=== PATIENT | female | born 1980 | race Caucasian/White ===

== ENCOUNTER 2017-08-04 01:46 | Inpatient (IN) ==
[2017-08-03 09:25] LABS: MANUAL DIFF NEEDED? NO; URINE MICRO REVIEW NEEDED? NO; URINE SOURCE VOIDED
[2017-08-03 10:08] LABS: BILIRUBIN URINE NEGATIVE (NEGATIVE); BLOOD URINE NEGATIVE (NEGATIVE); COLOR YELLOW; GLUCOSE URINE NEGATIVE (NEGATIVE); LEUKOCYTES URINE NEGATIVE (NEGATIVE); NITRITE URINE NEGATIVE (NEGATIVE); PH URINE 5.5; PROTEIN URINE NEGATIVE (NEGATIVE); SP GRAVITY URINE 1.017; TURBIDITY URINE CLEAR (CLEAR); UR EPITHELIAL CELLS <10 /HPF (<10); URINE BACTERIA 2+ /HPF; URINE RBC <10 /HPF (<10); UROBILINOGEN URINE NORMAL (NORMAL)
[2017-08-03 10:22] LABS: BASO% 0.8 % (0.0-0.8); EOS# 0.18 X1000 (0.0-0.7); EOS% 3.5 % (0.0-10.0); HEMATOCRIT 37.9 % (37.0-47.0); HEMOGLOBIN 12.3 g/dL (12.0-16.0); LYMPH# 1.55 X1000 (1.2-3.4); LYMPH% 30.4 % (20.5-51.1); MCH 28.2 PG (27-31); MCHC 32.5 g/dL (33-37); MCV 86.9 FL (81-99); MONO# 0.33 X1000 (0.11-0.59); MONO% 6.5 % (1.7-9.3); NEUT% 58.8 % (42.2-75.2); PLT 340 X1000 (130-400); RBC 4.36 XMIL (4.2-5.4)
[2017-08-04] MEDS ORDERED: LR 1,000 ML IV SCH ×2 (06:23→14:13)
[2017-08-04] MEDS ORDERED: LR 1,000 ML ONE ×3 (06:32→11:28)
[2017-08-04] MEDS ORDERED: ALBUTEROL NEB INH ONE (06:41)
[2017-08-04] MEDS ORDERED: SODIUM CHLORIDE 0.9% INJ SCH (06:45)
[2017-08-04] MEDS ORDERED: PEPCID ONE (06:45)
[2017-08-04] MEDS ORDERED: PEPCID IV SCH (06:45)
[2017-08-04] MEDS ORDERED: SODIUM CHLORIDE 0.9% 10 ML ONE ×2 (06:46→10:02)
[2017-08-04] MEDS ORDERED: DIPRIVAN 1% ONE (07:28)
[2017-08-04] MEDS ORDERED: QUELICIN (DOSE) ONE (07:30)
[2017-08-04] MEDS ORDERED: ROBINUL ONE ×2 (07:30→10:20)
[2017-08-04] MEDS ORDERED: XYLOCAINE-MPF 2% ONE (07:30)
[2017-08-04] MEDS ORDERED: KEFZOL 2 GM/D5W 2 GM/50 ML IVPB ONE (09:13)
[2017-08-04] MEDS ORDERED: NORCURON ONE (10:02)
[2017-08-04] MEDS ORDERED: FENTANYL ONE (10:03)
[2017-08-04] MEDS ORDERED: DECADRON ONE (10:08)
[2017-08-04] MEDS ORDERED: ZOFRAN ONE (10:08)
[2017-08-04 10:15] LABS: URINE MICROSCOPIC NEEDED? NO; URINE SOURCE CATH
[2017-08-04 10:16] LABS: BILIRUBIN URINE NEGATIVE (NEGATIVE); BLOOD URINE NEGATIVE (NEGATIVE); CLARITY CLEAR (CLEAR); COLOR YELLOW; GLUCOSE URINE NEGATIVE (NEGATIVE); LEUKOCYTES URINE NEGATIVE (NEGATIVE); NITRITE URINE NEGATIVE (NEGATIVE); PROTEIN URINE NEGATIVE (NEGATIVE); SP GRAVITY URINE 1.025; UROBILINOGEN URINE NORMAL
[2017-08-04] MEDS ORDERED: NEOSTIGMINE ONE (10:20)
[2017-08-04] MEDS ORDERED: PHENERGAN IM PRN (11:06)
[2017-08-04] MEDS ORDERED: ESTRADERM 0.05 MG/24 HR PATCH TD ONE ×2 (11:06→14:15)
[2017-08-04] MEDS ORDERED: DEMEROL IM PRN (11:06)
[2017-08-04] MEDS ORDERED: ZOFRAN ODT PO PRN (11:06)
[2017-08-04] MEDS: DILAUDID ONE ×4 (11:27→11:55)
[2017-08-04] MEDS ORDERED: TORADOL ONE (11:27)
[2017-08-04] MEDS ORDERED: DILAUDID PCA VIAL ONE (11:27)
[2017-08-04] MEDS: PHENERGAN ONE ×2 (11:30→11:43)
[2017-08-04] MEDS ORDERED: NARCAN IV PRN (14:13)
[2017-08-04] MEDS ORDERED: DILAUDID PCA VIAL IV PRN (14:13)
[2017-08-04] MEDS: TORADOL IV SCH ×2 (17:29→22:46)
[2017-08-04] MEDS: LR 1,000 ML IV SCH (18:45)
[2017-08-04] MEDS: COLACE PO SCH (20:19)
[2017-08-04] MEDS: PERIDEX MT SCH (20:19)
[2017-08-05] MEDS: LR 1,000 ML IV SCH (01:47)
[2017-08-05] MEDS: TORADOL IV SCH ×2 (04:21→10:08)
[2017-08-05 05:17] LABS: MANUAL DIFF NEEDED? NO
[2017-08-05 05:28] LABS: BASO% 0.1 % (0.0-0.8); EOS# 0.04 X1000 (0.0-0.7); EOS% 0.6 % (0.0-10.0); HEMATOCRIT 33.5 % (37.0-47.0); HEMOGLOBIN 10.4 g/dL (12.0-16.0); IMM GRAN# 0.01 X1000 (0.0-0.04); IMM GRAN% 0.1 % (0.0-0.5); LYMPH# 1.53 X1000 (1.2-3.4); LYMPH% 21.9 % (20.5-51.1); MCH 27.7 PG (27-31); MCV 89.1 FL (81-99); MONO# 0.65 X1000 (0.11-0.59); MONO% 9.3 % (1.7-9.3); PLT 256 X1000 (130-400); RBC 3.76 XMIL (4.2-5.4)
[2017-08-05] MEDS: SYNTHROID PO SCH ×2 (06:03→06:04)
[2017-08-05] MEDS: COLACE PO SCH ×2 (10:07→20:55)
[2017-08-05] MEDS: CELEXA PO SCH (10:07)
[2017-08-05] MEDS: PERIDEX MT SCH ×2 (10:07→20:55)
[2017-08-05] MEDS: NORCO-5 PO PRN (14:02)
[2017-08-05] MEDS: MYLICON PO PRN ×2 (14:03→17:33)
[2017-08-05] MEDS ORDERED: D/C PCA XX ONE (15:42)
[2017-08-05] MEDS: NORCO-10 PO PRN (17:33)
[2017-08-06] MEDS: NORCO-10 PO PRN (04:29)
[2017-08-06] MEDS: SYNTHROID PO SCH ×2 (06:33→06:34)
[2017-08-06 08:07] VITALS: BP 122/66
[2017-08-06] MEDS: CELEXA PO SCH (08:56)
[2017-08-06] MEDS: NORCO-5 PO PRN (08:56)
[2017-08-06] MEDS: COLACE PO SCH (08:56)
[2017-08-06] MEDS: PERIDEX MT SCH (08:56)
== END 2017-08-06 10:58 | disposition home or self-care (01) ==
LOC: SURHOLD 01:46 → P.WC 06:01
PROVIDERS: ADMIT Obstetrics & Gynecology; ATTEND Obstetrics & Gynecology